=== PATIENT | male | born 1995 | race Hispanic/Latino ===

== ENCOUNTER 2020-10-27 07:41 | Inpatient (IN) | payer OTHER ==
[~2020-10-27] VITALS: Ht 170.2 cm; Wt 70.5 kg
[2020-10-27 08:20] LABS: HEMATOCRIT 48.9 % (42.0-52.0); HEMOGLOBIN 16.5 g/dl (13.5-17.5); MEAN CORPUSCULAR HEMOGLOBIN 30.4 pg (27.0-33.0); MEAN CORPUSCULAR HGB CONC 33.7 g/dl (32.0-36.5); MEAN CORPUSCULAR VOLUME 90.1 fl (80.0-96.0); PLATELET COUNT, AUTOMATED 382 10^3/uL (150-450); RED BLOOD COUNT 5.43 10^6/uL (4.30-6.10); WHITE BLOOD COUNT 9.4 10^3/uL (4.0-10.0)
--- NOTE | 2020-10-27 08:28 | REP ---
INDICATION: trauma COMPARISON: None. TECHNIQUE: AP, lateral, bilateral oblique views right hand. FINDINGS: The osseous structures and joint spaces are intact and normal. There is no evidence for acute fracture or dislocation. Surrounding soft tissues are unremarkable. No subcutaneous emphysema or radiodense foreign body. IMPRESSION: . No acute fracture or dislocation. <Electronically signed by Bret Moreau > 10/27/20 [id number]
[2020-10-27] MEDS: NICOTINE 21MG/24HR 1 EA TRANSDERMAL TD SCH (09:00)
[2020-10-27 09:22] LABS: ACETAMINOPHEN LEVEL < 2.0 UG/ML (10.0-30.0); ALBUMIN 4.2 GM/DL (3.2-5.2); ALT/SGPT 71 U/L (12-78); BILIRUBIN,DIRECT 0.2 MG/DL (0.0-0.2); BILIRUBIN,TOTAL 0.7 MG/DL (0.2-1.0); BLOOD UREA NITROGEN 11 MG/DL (7-18); CALCIUM LEVEL 9.4 MG/DL (8.5-10.1); CARBON DIOXIDE LEVEL 30 MEQ/L (21-32); CHLORIDE LEVEL 106 MEQ/L (98-107); ETHYL ALCOHOL (ETHANOL) < 0.003 % (0.000-0.010); GLOMERULAR FILTRATION RATE > 60.0 (>60); GLUCOSE, FASTING 89 MG/DL (70-100); POTASSIUM SERUM 3.8 MEQ/L (3.5-5.1); SALICYLATE LEVEL < 1.7 MG/DL (5.0-30.0); SODIUM LEVEL 140 MEQ/L (136-145); TOTAL PROTEIN 7.9 GM/DL (6.4-8.2)
[2020-10-27 10:48] LABS: AMPHETAMINES LEVEL URINE NEGATIVE (NEGATIVE); BARBITURATES URINE NEGATIVE (NEGATIVE); BENZODIAZEPINES URINE NEGATIVE (NEGATIVE); CANNABINOIDS URINE NEGATIVE (NEGATIVE); COCAINE METABOLITE URINE NEGATIVE (NEGATIVE); METHADONE URINE NEGATIVE (NEGATIVE); OPIATES URINE NEGATIVE (NEGATIVE); PHENCYCLIDINE URINE NEGATIVE (NEGATIVE)
[2020-10-27] MEDS ORDERED: IBUPROFEN 400MG TAB PO PRN (13:05)
[2020-10-27] MEDS ORDERED: MOM 30ML SUSPENSION UDC PO PRN (13:05)
[2020-10-27] MEDS ORDERED: traZODone 50 MG TAB PO PRN (13:05)
[2020-10-27 15:42] VITALS: BP 129/86
[2020-10-27] MEDS: MAALOX 30 ML SUSP *UDC PO PRN (17:19)
[2020-10-27] MEDS: LORazepam 1 MG TAB PO PRN (21:57)
[2020-10-28 06:43] VITALS: BP 111/68
[2020-10-28] MEDS: NICOTINE 21MG/24HR 1 EA TRANSDERMAL TD SCH (09:00)
--- NOTE | 2020-10-28 10:08 | MHHPEPDOC ---
General Date Of Admission: October 27, 2020 Legal Status: 9.39 Chief Complaint I was crying and was feeling terrible and was thinking about suicide ". History of Present Illness HISTORY OF THE PRESENT ILLNESS: Patient is a 25 -year-old , male, who [has no previous inpatient psychiatric treatment. He has been seeing a counselor at a mental health clinic on the [facility] for the past 6 weeks to 2 increasing de pression. He hasn't been feeling very tired with no energy, poor sleep and appetite, unable to concentrate, but denies any psychotic symptoms. Denies any manic symptoms but was feeling increasingly distressed. Yesterday he WAS more anxious, restless, wanting about the future and crying and went to his mental status unit, but couldn't get any immediate help, so he called the hotline and was brought to the emergency room. He is denying any clear precipitant. Denies any drug or alcohol abuse issues, although admits that he is been worried about his family back in [place] and wanted to be transferred there, but apparently nothing unstated waiting, which could be the underlying stressor. He was not able to contract for safety and didn't feel quite stable enough to go back to his unit and was admitted on 939 status.]. Psychiatric Review of Systems Depression (2 or more weeks): depressed mood, anhedonia, insomnia/hypersomnia, feelings of worthlesness, decreased energy, difficulty concentrating, appetite changes, suicidal thoughts Jessica (4 or more days of): denies Psychosis: denies Anxiety: gen/non-specific anxiety, stressor related anxiety Past Psychiatric History Previous Psychiatric Diagnosis: [Depression]. Previous Psychiatric Admissions: [None]. Suicide Attempts: [, None]. Psychiatric Follow-up: [Was seeing a counselor at mental health unit]. Psychiatric medications: [Not been tried on any medications]. Past Medical History Medical Problems No medical issues Head Injury: No Seizures: No Hospitalizations: No Surgeries: No Family Medical/Psychiatric HX Psychiatric Disorders: Yes (patient reports her father's side aunt had bipolar disorder and one of his older brother has depression) Addiction: No Suicide Attemps/Completions: No Addiction History denies Social History Childhood: [Born in [place], finished high school, uneventful childhood]. Abuse/Trauma:[Denies any]. Current Living Situation: [place] and his family is in [place]]. Education: [High school]. Employment: [Was in 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 Legal: [Denies any]. Marital: [Been 2 years. His has a scoliosis and his habits 1 child 1-year-old living with his .]. Mental Status Examination General Appearance: well groomed, appears stated age Build: average Demeanor: average Eye Contact: average Activity: average Behavior: cooperative, loss of interests, anhedonia, withdrawn Speech: clear, spontaneous, low in volume Mood: depressed, anxious Affect: full, appropriate, congruent, anxious Thought Process: logical/linear Thought Content (Delusions): none reported Thought Content (Other): none reported Thought Content (Aggressive): none reported Perception (Hallucinations): none reported Perception (Other): none reported Cognition (Impairment of): none reported Cognition(Intelligence Est.): average Oriented: Awake, Alert, Oriented times three Insight: fair Judgment: Fair Psychosis: Denies Diagnoses Major depressive disorder, single episode, moderate A-FIB/CHADSVASC A-FIB History Current/History of A-Fib/PAF?: No Current PO Anticoag Therapy: No Age/Risk Factor Scoring CHADSVASC: CHADSVASC Response (Comments) Value Gender Risk Factor Male 0 Hx of CHF No 0 Hx of HTN No 0 Hx of Stroke/TIA/or VTE No 0 Hx of Diabetes No 0 Hx of Vascular Disease No 0 Total 0 Treatment Treatment ordered: NONE Assessment Appears markedly depressed, but not psychotic and denies any active suicidal thoughts. It appears that he is quite anxious about his family. He had a no trial and of antidepressant medication and is willing to try antidepressant medication and willing to cooperate. Initial Treatment Plan 1. Patient was admitted on a [9.39] status. 2. Complete history was obtained. 3. With patients permission, family will be contacted and database will be expanded. 4. Patients medication regimen will be reviewed and changed accordingly. 5. Patient will be provided with protected environment. 6. Patient will be treated with individual, group, and milieu therapies. 7. Patient will receive supportive psych-education. 8. Discharge planning will commence immediately. 9. Outpatient follow-up treatment will be strongly recommended. 10. The initial treatment plan will focus initially on: * Depression. * Risk for suicide. ESTIMATED LENGTH OF STAY: [5]-[7] DAYS. TIME SPENT COUNSELING AND COORDINATING INITIAL CARE: [45] minutes. Tobacco Cessation Screen If Patient is a Smoker Nonsmoker N/A-No Antipsychotics Vital Signs Vital Signs Date Time Temp Pulse Resp B/P (MAP) Pulse Ox O2 Delivery O2 Flow Rate FiO2 10/28/20 06:43 97.6 81 18 111/68 (82) 100 Room Air Laboratory Data 24H Labs Laboratory Tests 2 10/27/20 10:05: Urine Opiates Screen NEGATIVE, Urine Methadone Screen NEGATIVE, Urine Barbiturates Screen NEGATIVE, Urine Phencyclidine Screen NEGATIVE, Urine Amphetamines Screen NEGATIVE, Urine Benzodiazepines Screen NEGATIVE, Urine Cocaine Metabolite Screen NEGATIVE, Urine Cannabinoids Screen NEGATIVE Medications No Active Prescriptions or Reported Meds Allergies Coded Allergies: No Known Allergies (Unverified , 10/27/20) EIL BARBER M.D. October 28, 2020 10:08
[2020-10-28] MEDS: SERTRALINE HCL 50 MG TAB PO SCH (10:09)
--- NOTE | 2020-10-28 13:07 | HPEPDOC ---
[facility] Medical History & Physical Date of Admission October 28, 2020 Date of Service: October 28, 2020 History and Physical CHIEF COMPLAINT: Medical evaluation HISTORY OF PRESENT ILLNESS: Patient admitted to the inpatient mental health unit for suicidal ideations. I am asked to provide a medical assessment of patient admitted to the psychiatric unit. My assessment is limited to medical problems and does not address any psychiatric problems which is deferred to the in-house psychiatrist. Patient has no medical complaints feels well, no complaints at this time. ROS all negative. PAST MEDICAL/SURGICAL HISTORY: Denies any SOCIAL HISTORY: Endorses drinking alcohol socially only on special occasions such as on weekends with friends Endorses smoking e-cigarettes daily Denies illicit drug use FAMILY HISTORY: Reviewed and none contributory to this admission ALLERGIES: Please see below. REVIEW OF SYSTEMS: 10 point review of systems complete all negative otherwise stated in HPI HOME MEDICATIONS: Please see below. PHYSICAL EXAMINATION: Constitutional: Awake and alert, in no apparent distress ENT: Sclera are clear. Mucosa is moist. Respiratory: Lungs CTA bilaterally. No respiratory distress. Cardiovascular: RRR S1 and S2 are normal, no murmur Gastrointestinal: Abdomen is soft, non distended, non tender, BS present. Musculoskeletal: No lower extremity edema. Neurologic: No focal neurological deficit. Mental Status: A&O x3 Skin: Warm, dry LABORATORY DATA: See below. IMAGING: See chart MICROBIOLOGY: Please see below. ASSESSMENT/PLAN Medical evaluation for patient admitted to inpatient mental health unit. Patient is doing well and has no active medical problems. Follow-up with PCP after discharge. Follow-up with recommendations and management from psychiatry. Counseled to quit smoking. A [facility] Vital Signs Vital Signs Date Time Temp Pulse Resp B/P (MAP) Pulse Ox O2 Delivery O2 Flow Rate FiO2 10/28/20 06:43 97.6 81 18 111/68 (82) 100 Room Air Laboratory Data Microbiology Microbiology 10/27/20 Respiratory Virus Panel (PCR) (MARLA) - Final, Complete Home Medications No Active Prescriptions or Reported Meds Allergies Coded Allergies: No Known Allergies (Unverified , 10/27/20) A-FIB/CHADSVASC A-FIB History Current/History of A-Fib/PAF?: No Age/Risk Factor Scoring CHADSVASC: CHADSVASC Response (Comments) Value Gender Risk Factor Male 0 Hx of CHF No 0 Hx of HTN No 0 Hx of Stroke/TIA/or VTE No 0 Hx of Diabetes No 0 Hx of Vascular Disease No 0 Total 0 YFN LOMAS MD October 28, 2020 13:07
[2020-10-28 18:13] VITALS: BP 134/77
[2020-10-28] MEDS: LORazepam 1 MG TAB PO PRN (21:43)
[2020-10-29 06:52] VITALS: BP 132/81
[2020-10-29] MEDS: NICOTINE 21MG/24HR 1 EA TRANSDERMAL TD SCH (08:42)
[2020-10-29] MEDS: SERTRALINE HCL 50 MG TAB PO SCH (08:43)
--- NOTE | 2020-10-29 11:16 | MHIPNPDOC ---
[facility] Progress Note Progress Note DATE OF SERVICE: 10/29/20 , The patient took his Zoloft yesterday and today, and the reports that after his first dose, he felt somewhat tired and a little drowsy. He also had the increased anxiety at that times and apparently used to Ativan when necessary. He is not feeling any differently yet and stated feeling quite depressed, anxious, and feeling hopeless, but denies any active suicidal thoughts and is willing to cooperate with the treatment to get better. HISTORY: . VITAL SIGNS: See below. NEW TEST RESULTS: . CURRENT MEDICATIONS: See below. MENTAL STATUS EXAMINATION: Patient is a 25-year old male, who is , cooperative and in no acute distress. Speech: Is rational, coherent . Language skills are good. Thought processes including: Organized . Thought content: , No psychotic symptoms and no active suicidal thoughts. Abstract reasoning, and computation: Good. Description of associations: Organized. Description of abnormal or psychotic thoughts: Non-. Judgment: , Fair. Insight: fair.. Orientation: , Well oriented. Recent and remote memory: Good. Attention span and concentration: Good. Language: . Fund of knowledge: [Average. Mood: , Anxious, depressed. Affect: , Appropriate]. DIAGNOSES: 1. . Major depression 2. . 3. . ASSESSMENT:, No significant change, but cooperating with the medicine MANAGEMENT PLAN: [Continuing the current medicine and supportive therapy]. TIME SPENT: [20] minutes. Vital Signs Vital Signs Date Time Temp Pulse Resp B/P (MAP) Pulse Ox O2 Delivery O2 Flow Rate FiO2 10/29/20 06:52 97.9 78 18 132/81 (98) 98 Room Air Current Medications Current Medications Medications (Trade) Dose Ordered Sig/Kevin Route PRN Reason Start Time Stop Time Status Last Admin Dose Admin Al Hydrox/Mg Hydrox/Simethicone (Mylanta) 30 ml Q4HP PRN PO HEARTBURN/INDIGESTION 10/27/20 13:05 10/27/20 17:19 Home Med (Med Rec Complete!) ASDIRECTED XX 10/27/20 11:55 10/27/20 11:57 DC Ibuprofen (Advil) 400 mg Q6HP PRN PO PAIN 10/27/20 13:05 10/27/20 20:26 Lorazepam (Ativan) 1 mg Q6HP PRN PO ANXIETY 10/27/20 21:35 10/28/20 21:43 Magnesium Hydroxide (Milk Of Magnesia) 30 ml DAILYPRN PRN PO CONSTIPATION 10/27/20 13:05 Nicotine (Nicoderm Cq 21mg) 1 patch DAILY TD 10/27/20 09:00 10/29/20 08:42 Sertraline HCl (Zoloft) 50 mg QAM PO 10/28/20 09:00 10/29/20 08:43 Trazodone HCl (Desyrel) 50 mg QHSP PRN PO INSOMNIA 10/27/20 13:05 Allergies Coded Allergies: No Known Allergies (Unverified , 10/27/20) ELI BARBER M.D. October 29, 2020 11:16
[2020-10-29] MEDS: hydrOXYzine 25 MG TAB PO PRN ×2 (11:46→23:07)
[2020-10-29 16:16] VITALS: BP 119/71
[2020-10-30 06:22] VITALS: BP 122/59
[2020-10-30] MEDS: SERTRALINE HCL 50 MG TAB PO SCH (09:01)
[2020-10-30] MEDS: NICOTINE 21MG/24HR 1 EA TRANSDERMAL TD SCH (09:02)
--- NOTE | 2020-10-30 11:43 | MHIPNPDOC ---
[facility] Progress Note Progress Note DATE OF SERVICE: 10/30/20 The patient reports that he was having marked difficulty yesterday with the sleep and anxiety control. He states that he was feeling constantly restless and uneasy and anxious and later at night and couldn't fall asleep even with the 50 mg of trazodone. He reports Atarax was not helping his anxiety and wasn't getting any relief. Patient does not have any history of the alcohol. Rule out drug abuse and is not particularly med seeking, so we will try Ativan as needed for the next 2-3 days. I would also give him trazodone increased to 100 mg because he reports some partial relief with 50mg. He understands that his depression is due to his ambivalence about his [employer] career, but apparently has decided to leave the service which adds to his anxiety. He is denying any psychotic symptoms and denies any suicidal thoughts. HISTORY: . VITAL SIGNS: See below. NEW TEST RESULTS: . CURRENT MEDICATIONS: See below. MENTAL STATUS EXAMINATION: Patient is a 25-year old male, who is moderately anxious and preoccupied. Speech: Is rational, relevant. Language skills are good. Thought processes including: , Organized. Thought content: Denies any psychosis. Denies any active suicidal thoughts. Abstract reasoning, and computation: , Fair. Description of associations: , Organized. Description of abnormal or psychotic thoughts: None. Judgment: , Fair. Insight: fair. Orientation: , Well-oriented. Recent and remote memory: Good. Attention span and concentration: [Good]. Language: . Fund of knowledge: [Average]. Mood: [, Depressed, anxious]. Affect: [, Appropriate]. DIAGNOSES: 1. . Depressive disorder, NOS 2. . 3. . ASSESSMENT:[Remains anxious and depressed, but not acutely suicidal] MANAGEMENT PLAN: [, Try to stabilize with Zoloft and trazodone and supportive therapy]. TIME SPENT: 20 minutes. Vital Signs Vital Signs Date Time Temp Pulse Resp B/P (MAP) Pulse Ox O2 Delivery O2 Flow Rate FiO2 10/30/20 06:22 97.8 60 16 122/59 (80) 98 Room Air Current Medications Current Medications Medications (Trade) Dose Ordered Sig/Kevin Route PRN Reason Start Time Stop Time Status Last Admin Dose Admin Al Hydrox/Mg Hydrox/Simethicone (Mylanta) 30 ml Q4HP PRN PO HEARTBURN/INDIGESTION 10/27/20 13:05 10/27/20 17:19 Home Med (Med Rec Complete!) ASDIRECTED XX 10/27/20 11:55 10/27/20 11:57 DC Hydroxyzine HCl (Atarax) 25 mg Q6HP PRN PO ANXIETY 10/29/20 11:10 10/29/20 23:07 Ibuprofen (Advil) 400 mg Q6HP PRN PO PAIN 10/27/20 13:05 10/27/20 20:26 Loperamide HCl (Imodium) 2 mg ASDIRECTED PRN PO DIARRHEA 10/29/20 18:20 Lorazepam (Ativan) 1 mg Q6HP PRN PO ANXIETY 10/27/20 21:35 10/29/20 11:13 DC 10/28/20 21:43 Magnesium Hydroxide (Milk Of Magnesia) 30 ml DAILYPRN PRN PO CONSTIPATION 10/27/20 13:05 Nicotine (Nicoderm Cq 21mg) 1 patch DAILY TD 10/27/20 09:00 10/30/20 09:02 Sertraline HCl (Zoloft) 50 mg QAM PO 10/28/20 09:00 10/30/20 09:01 Trazodone HCl (Desyrel) 50 mg QHSP PRN PO INSOMNIA 10/27/20 13:05 10/29/20 20:57 Allergies Coded Allergies: No Known Allergies (Unverified , 10/27/20) ELI BARBER M.D. October 30, 2020 11:43
[2020-10-30] MEDS: LORazepam 1 MG TAB PO PRN (13:05)
[2020-10-30 18:30] VITALS: BP 148/81
[2020-10-30] MEDS ORDERED: traZODone 100 MG TAB PO SCH (21:00)
[2020-10-31] MEDS: LORazepam 1 MG TAB PO PRN (00:11)
[2020-10-31 06:00] VITALS: BP 117/56
[2020-10-31] MEDS: SERTRALINE HCL 50 MG TAB PO SCH (08:29)
[2020-10-31] MEDS: NICOTINE 21MG/24HR 1 EA TRANSDERMAL TD SCH (08:29)
[2020-10-31 16:58] VITALS: BP 123/77
[2020-10-31] MEDS: traZODone 50 MG TAB PO PRN (21:44)
[2020-11-01 07:00] VITALS: BP 119/56
[2020-11-01] MEDS: NICOTINE 21MG/24HR 1 EA TRANSDERMAL TD SCH (08:19)
[2020-11-01] MEDS: SERTRALINE HCL 50 MG TAB PO SCH (08:20)
--- NOTE | 2020-11-01 12:48 | MHIPN ---
[facility] PROGRESS NOTE DATE: 10/31/2020 The patient today states that he is "better," but then he says that he is tired. He says he is better because he is less anxious today than he was yesterday. He took trazodone and still did not sleep, and so he requested Ativan as needed that he had ordered for him and then he got some sleep. MENTAL STATUS EXAMINATION: The patient is alert and oriented times three. Eye contact fair. Psychomotor activity is decreased. There is no formal thought disorder noted. He says his mood is "better." Affect is flat. He is denying suicidal or homicidal ideations. Concentration is fair. Memory intact. Insight and judgment fair. DIAGNOSIS: Major depressive disorder. TREATMENT PLAN: At this point, we will continue to monitor the patient for continued elevation and stabilization of his mood.
[2020-11-01] MEDS: MAALOX 30 ML SUSP *UDC PO PRN ×2 (14:39→20:57)
[2020-11-01] MEDS: LOPERAMIDE 2 MG CAPLET PO PRN (17:02)
[2020-11-01 18:18] VITALS: BP 157/80
[2020-11-01] MEDS: traZODone 50 MG TAB PO PRN (21:31)
[2020-11-02 06:58] VITALS: BP 106/56
[2020-11-02] MEDS: SERTRALINE HCL 50 MG TAB PO SCH (08:30)
[2020-11-02] MEDS: NICOTINE 21MG/24HR 1 EA TRANSDERMAL TD SCH (08:31)
--- NOTE | 2020-11-02 12:16 | MHIPNPDOC ---
[facility] Progress Note Progress Note DATE OF SERVICE: 11/02/20 Patient complains that he is still feeling a little tired and didn't sleep very well, but overall he feels a little better and not as depressed and denies any suicidal thoughts. He is denying any side effects from his medicine and is willing to have it increased 200 mg. He is not as anxious and is earlier more productive and not as blunted. HISTORY: . VITAL SIGNS: See below. NEW TEST RESULTS: . CURRENT MEDICATIONS: See below. MENTAL STATUS EXAMINATION: Patient is a 25-year old male, who is in no acute distress. Speech: Is rational. Language skills are good]. Thought processes including: , Organized. Thought content: Denies any hallucination and denies any suicidal thoughts. Abstract reasoning, and computation: Good. Description of associations: , Organized. Description of abnormal or psychotic thoughts: Non-. Judgment: , Fair. Insight: fair.. Orientation: , Well oriented. Recent and remote memory: Good. Attention span and concentration: Good. Language: . Fund of knowledge: Average]. Mood: [, Not as depressed]. Affect: Appropriate . DIAGNOSES: 1. . Major depression 2. . 3. . ASSESSMENT: Slight improvement and no suicidal thoughts MANAGEMENT PLAN: [Increase in Zoloft 200 mg]. TIME SPENT: [20] minutes. Vital Signs Vital Signs Date Time Temp Pulse Resp B/P (MAP) Pulse Ox O2 Delivery O2 Flow Rate FiO2 11/02/20 06:58 98.0 71 20 106/56 (73) 96 Room Air Current Medications Current Medications Medications (Trade) Dose Ordered Sig/Kevin Route PRN Reason Start Time Stop Time Status Last Admin Dose Admin Al Hydrox/Mg Hydrox/Simethicone (Mylanta) 30 ml Q4HP PRN PO HEARTBURN/INDIGESTION 10/27/20 13:05 11/01/20 20:57 Home Med (Med Rec Complete!) ASDIRECTED XX 10/27/20 11:55 10/27/20 11:57 DC Hydroxyzine HCl (Atarax) 25 mg Q6HP PRN PO ANXIETY 10/29/20 11:10 10/30/20 11:38 DC 10/29/20 23:07 Ibuprofen (Advil) 400 mg Q6HP PRN PO PAIN 10/27/20 13:05 10/27/20 20:26 Loperamide HCl (Imodium) 2 mg ASDIRECTED PRN PO DIARRHEA 10/29/20 18:20 11/01/20 17:02 Lorazepam (Ativan) 1 mg Q6HP PRN PO ANXIETY 10/27/20 21:35 10/29/20 11:13 DC 10/28/20 21:43 Lorazepam (Ativan) 1 mg Q8HP PRN PO ANXIETY 10/30/20 11:35 10/31/20 00:11 Magnesium Hydroxide (Milk Of Magnesia) 30 ml DAILYPRN PRN PO CONSTIPATION 10/27/20 13:05 Nicotine (Nicoderm Cq 21mg) 1 patch DAILY TD 10/27/20 09:00 10/30/20 09:02 Sertraline HCl (Zoloft) 50 mg QAM PO 10/28/20 09:00 11/02/20 08:30 Trazodone HCl (Desyrel) 50 mg QHSP PRN PO INSOMNIA 10/27/20 13:05 10/30/20 11:38 DC 10/29/20 20:57 Trazodone HCl (Desyrel) 100 mg QHS PO 10/30/20 21:00 10/31/20 10:04 DC 10/30/20 22:36 Trazodone HCl (Desyrel) 150 mg QHSP PRN PO INSOMNIA 10/31/20 10:05 11/01/20 21:31 Allergies Coded Allergies: No Known Allergies (Unverified , 10/27/20) ELI BARBER M.D. November 02, 2020 12:16
[2020-11-02] MEDS ORDERED: LOPERAMIDE 2 MG CAPLET PO ONE (13:05)
[2020-11-02 18:54] VITALS: BP 113/70
[2020-11-02] MEDS: traZODone 50 MG TAB PO PRN (22:22)
[2020-11-03 06:31] VITALS: BP 130/60
[2020-11-03] MEDS: SERTRALINE 100 MG TAB PO SCH (08:52)
--- NOTE | 2020-11-03 12:16 | MHIPNPDOC ---
[facility] Progress Note Progress Note DATE OF SERVICE: 11/03/20 The patient cooperated and tolerated the increased Zoloft without any side effects. He stated that she slept "pretty good yesterday and is feeling not as tired and overall feeling a little bit more hopeful and has more positive thinking. He does appear more animated, smiling a little bit more and strongly denies any suicidal thoughts. He is been token to his family in [place] and getting the support and strongly denies any more suicidal thoughts. He has not been using. He is a Ativan 1 nicotine gum plan overall feeling less anxious and more positive. HISTORY: . VITAL SIGNS: See below. NEW TEST RESULTS: . CURRENT MEDICATIONS: See below. MENTAL STATUS EXAMINATION: Patient is a 25 -year old male, who is , pleasant and cooperative. Speech: Is good, productive, . Language skills are good. Thought processes including: , Relevant, coherent. Thought content: Denies any suicidal thoughts. Abstract reasoning, and computation: Good. Description of associations: , Organized. Description of abnormal or psychotic thoughts: None. Judgment: , Fair. Insight: [fair. . Orientation: , Well-oriented, good. Recent and remote memory: Good. Attention span and concentration: Fair. Language: . Fund of knowledge: Average. Mood: , Not feeling as depressed. Affect: More animated and appropriate. DIAGNOSES: 1. . Depressive disorder 2. . 3. . ASSESSMENT: Showing improvement MANAGEMENT PLAN: . Continue with the current medicines and possible discharge tomorrow, 20 minutes. Vital Signs Vital Signs Date Time Temp Pulse Resp B/P (MAP) Pulse Ox O2 Delivery O2 Flow Rate FiO2 11/03/20 06:31 99.4 61 16 130/60 (83) 96 Room Air Current Medications Current Medications Medications (Trade) Dose Ordered Sig/Kevin Route PRN Reason Start Time Stop Time Status Last Admin Dose Admin Al Hydrox/Mg Hydrox/Simethicone (Mylanta) 30 ml Q4HP PRN PO HEARTBURN/INDIGESTION 10/27/20 13:05 11/01/20 20:57 Home Med (Med Rec Complete!) ASDIRECTED XX 10/27/20 11:55 10/27/20 11:57 DC Hydroxyzine HCl (Atarax) 25 mg Q6HP PRN PO ANXIETY 10/29/20 11:10 10/30/20 11:38 DC 10/29/20 23:07 Ibuprofen (Advil) 400 mg Q6HP PRN PO PAIN 10/27/20 13:05 10/27/20 20:26 Loperamide HCl (Imodium) 2 mg ASDIRECTED PRN PO DIARRHEA 10/29/20 18:20 11/01/20 17:02 Lorazepam (Ativan) 1 mg Q6HP PRN PO ANXIETY 10/27/20 21:35 10/29/20 11:13 DC 10/28/20 21:43 Lorazepam (Ativan) 1 mg Q8HP PRN PO ANXIETY 10/30/20 11:35 10/31/20 00:11 Magnesium Hydroxide (Milk Of Magnesia) 30 ml DAILYPRN PRN PO CONSTIPATION 10/27/20 13:05 Nicotine (Nicoderm Cq 21mg) 1 patch DAILY TD 10/27/20 09:00 11/02/20 15:20 DC 10/30/20 09:02 Sertraline HCl (Zoloft) 50 mg QAM PO 10/28/20 09:00 11/02/20 12:14 DC 11/02/20 08:30 Sertraline HCl (Zoloft) 100 mg QAM PO 11/03/20 09:00 11/03/20 08:52 Trazodone HCl (Desyrel) 50 mg QHSP PRN PO INSOMNIA 10/27/20 13:05 10/30/20 11:38 DC 10/29/20 20:57 Trazodone HCl (Desyrel) 100 mg QHS PO 10/30/20 21:00 10/31/20 10:04 DC 10/30/20 22:36 Trazodone HCl (Desyrel) 150 mg QHSP PRN PO INSOMNIA 10/31/20 10:05 11/02/20 22:22 Allergies Coded Allergies: No Known Allergies (Unverified , 10/27/20) ELI BARBER M.D. November 03, 2020 12:16
[2020-11-03] MEDS: MAALOX 30 ML SUSP *UDC PO PRN ×2 (15:03→19:53)
[2020-11-03 16:15] VITALS: BP 140/89
[2020-11-03] MEDS: LOPERAMIDE 2 MG CAPLET PO PRN (17:18)
[2020-11-03] MEDS: traZODone 50 MG TAB PO PRN (23:11)
[2020-11-04 06:51] VITALS: BP 112/54
[2020-11-04] MEDS: SERTRALINE 100 MG TAB PO SCH (08:36)
[2020-11-04] MEDS ORDERED: ZOLO100T PO (09:30)
[2020-11-04] MEDS ORDERED: TRAZ-252 PO (10:30)
--- NOTE | 2020-11-04 11:59 | MHDSPDOC ---
[facility] Discharge Summary Discharge Summary DATE OF ADMISSION: October 27, 2020 at 13:03 DATE OF DISCHARGE: November 04, 2020 at 10:36 DISCHARGE DIAGNOSES: 1. . 2. . REASON FOR ADMISSION: CONSULTANTS INVOLVED: TREATMENT AND PROGRESS ON THE UNIT : . HOSPITAL COURSE: DISCHARGE ASSESSMENT: MENTAL STATUS EXAMINATION ON DISCHARGE: Patient is a -year old male, who is . Speech is . Language skills are . Thought processes including: . Thought content: . Abstract reasoning, and computation: . Description of associations: . Description of abnormal or psychotic thoughts: . Judgment: . Insight: . Orientation to . Recent and remote memory: . Attention span and concentration: . Language: . Fund of knowledge: . Mood: . Affect: . MEDICATIONS ON DISCHARGE: - for . - for . - for . PLAN/FOLLOWUP ARRANGEMENTS: . The amount of time spent in the coordination of care for this patient was approximately minutes. ETOH/Disorder Med Rx ETOH/DRUG DISORDER RX: N/A Vital Signs/I&Os Vital Signs Date Time Temp Pulse Resp B/P (MAP) Pulse Ox O2 Delivery O2 Flow Rate FiO2 11/04/20 06:51 97.9 71 16 112/54 (73) 98 Room Air Laboratory Data Microbiology Microbiology 10/27/20 Respiratory Virus Panel (PCR) ([facility]) - Final, Complete Medications Scheduled Sertraline Hcl (Zoloft) 100 Mg Tablet, 100 MG PO QAM for depression for 7 Days, #7 Scheduled PRN Trazodone HCl (Trazodone HCl) 50 Mg Tablet, 150 MG PO QHSP PRN for INSOMNIA for 7 Days, #7 Allergies Coded Allergies: No Known Allergies (Unverified , 10/27/20) ELI BARBER M.D. November 04, 2020 11:59
--- NOTE | 2020-11-04 12:05 | MHDSPDOC ---
[facility] Discharge Summary Discharge Summary DATE OF ADMISSION: October 27, 2020 at 13:03 DATE OF DISCHARGE: November 04, 2020 at 10:36 DISCHARGE DIAGNOSES: 1. . Major depression, single episode, moderate 2. . REASON FOR ADMISSION: Patient wasn't experiencing increasing depressive symptoms with vague suicidal thoughts. He has no prior history, but it was reporting increasing anxiety, poor sleep, feeling tired and having vague suicidal thoughts CONSULTANTS INVOLVED: None TREATMENT AND PROGRESS ON THE UNIT : [Patient was seen for supportive therapy and started on Zoloft 50 mg daily, increase to 100 mg daily and given trazodone for sleep and Ativan for anxiety as needed.. HOSPITAL COURSE: Patient showed gradual but significant improvement. His anxiety is improved and his Ativan was discontinued and his sleep is much improved and is becoming much less anxious, feeling more hopeful, positive and denies any suicidal thoughts at all and feeling safe to return to the surface. DISCHARGE ASSESSMENT: Much improved and stable and suicidal MENTAL STATUS EXAMINATION ON DISCHARGE: Patient is a 25-year old male, who is in no acute distress. Speech is , productive. Language skills are good. Thought processes including: , Relevant, coherent. Thought content: More suicidal thoughts. Abstract reasoning, and computation: Good. Description of associations: Firm. Description of abnormal or psychotic thoughts: None. Judgment: Good. Good. Insight: Good. Orientation to , well oriented. Recent and remote memory: Good. Good. Attention span and concentration: . Language: . Fund of knowledge: Average. Mood: Euthymic. Affect: Bright, appropriate. MEDICATIONS ON DISCHARGE: - [Zoloft 100 mg daily for 7 days with 3 refills. - Trazodone 150 mg at bedtime for 7 days with 3 refills. - for . PLAN/FOLLOWUP ARRANGEMENTS: As arranged by the technical planner. The amount of time spent in the coordination of care for this patient was approximately 40 minutes. ETOH/Disorder Med Rx ETOH/DRUG DISORDER RX: N/A Vital Signs/I&Os Vital Signs Date Time Temp Pulse Resp B/P (MAP) Pulse Ox O2 Delivery O2 Flow Rate FiO2 11/04/20 06:51 97.9 71 16 112/54 (73) 98 Room Air Laboratory Data Microbiology Microbiology 10/27/20 Respiratory Virus Panel (PCR) ([facility]) - Final, Complete Medications Scheduled Sertraline Hcl (Zoloft) 100 Mg Tablet, 100 MG PO QAM for depression for 7 Days, #7 Scheduled PRN Trazodone HCl (Trazodone HCl) 50 Mg Tablet, 150 MG PO QHSP PRN for INSOMNIA for 7 Days, #7 Allergies Coded Allergies: No Known Allergies (Unverified , 10/27/20) ELI BARBER M.D. November 04, 2020 12:05
== END 2020-11-04 10:36 | disposition home or self-care (01) | DRG 885 ==
LOC: M ED 07:41 → M ED INP 13:03 → M PSY 15:39
PROVIDERS: ADMIT Psychiatry & Neurology Psychiatry; ATTEND Psychiatry & Neurology Psychiatry
DX: F32.1 Major depressive disorder, single episode, moderate (principal); R45.851 Suicidal ideations; F17.290 Nicotine dependence, other tobacco product, uncomplicated

== ENCOUNTER 2020-11-08 22:11 | Emergency (ER) | payer OTHER ==
[~2020-11-08] VITALS: Ht 170.2 cm; Wt 67.0 kg
[~2020-11-08 22:11] MED LIST: TRAZ-252 PO; ZOLO100T PO
[2020-11-08] MEDS ORDERED: OMEP10CASR PO (22:27)
[2020-11-08] MEDS ORDERED: KETOROLAC 30 MG/ML 1ML VIAL IV ONE (22:55)
[2020-11-08] MEDS ORDERED: NS 1,000 ML IV ONE (22:55)
[2020-11-08] MEDS ORDERED: METOCLOPRAMIDE INJ 10MG/2ML VIAL (J2765 PER 1) IV ONE (22:55)
[2020-11-08] MEDS ORDERED: diphenhydrAMINE 50MG/ML VIAL (J1200) IV ONE (22:55)
--- NOTE | 2020-11-08 23:08 | REPVR ---
PROCEDURE INFORMATION: Exam: CT Head Without Contrast Exam date and time: 11/08/2020 10:53 PM Age: 25 years old Clinical indication: Other: Headache TECHNIQUE: Imaging protocol: Computed tomography of the head without contrast. Radiation optimization: All CT scans at this facility use at least one of these dose optimization techniques: automated exposure control; mA and/or kV adjustment per patient size (includes targeted exams where dose is matched to clinical indication); or iterative reconstruction. COMPARISON: No relevant prior studies available. FINDINGS: Brain: Normal. No hemorrhage. Unremarkable white matter. No mass effect. Cerebral ventricles: No ventriculomegaly. Paranasal sinuses: Visualized sinuses are unremarkable. No fluid levels. Mastoid air cells: Visualized mastoid air cells are well aerated. Bones/joints: Unremarkable. No acute fracture. Soft tissues: Unremarkable. IMPRESSION: Negative noncontrast head CT. Electronically signed by: Keenan Antoine On 11/08/2020 23:07:43 PM
[2020-11-08 23:25] LABS: BASO # 0.1 10^3/uL (0.0-0.2); BASO % 0.5 % (0.0-1.0); EOS # 0.2 10^3/uL (0.0-0.5); EOS % 1.6 % (0.0-3.0); HEMATOCRIT 45.8 % (42.0-52.0); HEMOGLOBIN 15.5 g/dl (13.5-17.5); LYMPH # 2.2 10^3/uL (1.5-5.0); LYMPH % 22.2 % (24.0-44.0); MEAN CORPUSCULAR HEMOGLOBIN 29.9 pg (27.0-33.0); MEAN CORPUSCULAR HGB CONC 33.8 g/dl (32.0-36.5); MEAN CORPUSCULAR VOLUME 88.4 fl (80.0-96.0); MONO # 0.8 10^3/uL (0.0-0.8); MONO % 7.8 % (2.0-8.0); NEUTROPHILS # 6.8 10^3/uL (1.5-8.5); NEUTROPHILS % 67.6 % (36.0-66.0); PLATELET COUNT, AUTOMATED 344 10^3/uL (150-450); RED BLOOD COUNT 5.18 10^6/uL (4.30-6.10); WHITE BLOOD COUNT 10.1 10^3/uL (4.0-10.0)
[2020-11-08 23:56] LABS: BLOOD UREA NITROGEN 10 MG/DL (7-18); CALCIUM LEVEL 8.7 MG/DL (8.5-10.1); CARBON DIOXIDE LEVEL 28 MEQ/L (21-32); CHLORIDE LEVEL 106 MEQ/L (98-107); CK-MB VALUE MASS < 1.0 NG/ML (<3.6); CPK CREATINE PHOSPHOKINASE 60 U/L (39-308); CREATININE FOR GFR 0.86 MG/DL (0.70-1.30); GLOMERULAR FILTRATION RATE > 60.0 (>60); GLUCOSE, FASTING 91 MG/DL (70-100); MB/CK RELATIVE INDEX 1.67 (< OR =4); POTASSIUM SERUM 3.8 MEQ/L (3.5-5.1); SODIUM LEVEL 141 MEQ/L (136-145); TROPONIN I < 0.02 NG/ML (< 0.10)
[2020-11-09 03:00] VITALS: BP 137/60
--- NOTE | 2020-11-09 09:35 | ECGEPIP ---
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
== END 2020-11-09 03:10 | disposition home or self-care (01) ==
LOC: M ED 22:11
DX: G43.809 Other migraine, not intractable, without status migrainosus (principal); G47.00 Insomnia, unspecified; F41.1 Generalized anxiety disorder; Z79.899 Other long term (current) drug therapy
CPT/HCPCS: 70450; 80048; 82550; 82553; 84484; 85025; 93005; 93041; 94760; 96361; 96374; 96375; 99285; J1200; J1885; J2765

== ENCOUNTER 2022-03-03 10:27 | Emergency (ER) | payer OTHER ==
[~2022-03-03] VITALS: Ht 175.3 cm; Wt 71.5 kg
[~2022-03-03 10:27] MED LIST changes: +OMEP10CASR PO
[2022-03-03 10:29] VITALS: BP 129/80
[2022-03-03 12:20] LABS: BASO # 0.1 10^3/uL (0.0-0.2); BASO % 0.6 % (0.0-1.0); EOS # 0.1 10^3/uL (0.0-0.5); EOS % 0.9 % (0.0-3.0); HEMATOCRIT 48.3 % (42.0-52.0); HEMOGLOBIN 16.4 g/dl (13.5-17.5); LYMPH % 23.9 % (24.0-44.0); MEAN CORPUSCULAR HEMOGLOBIN 29.7 pg (27.0-33.0); MEAN CORPUSCULAR VOLUME 87.3 fl (80.0-96.0); MONO # 0.7 10^3/uL (0.0-0.8); NEUTROPHILS # 5.7 10^3/uL (1.5-8.5); NEUTROPHILS % 66.4 % (36.0-66.0); PLATELET COUNT, AUTOMATED 377 10^3/uL (150-450); RED BLOOD COUNT 5.53 10^6/uL (4.30-6.10); WHITE BLOOD COUNT 8.6 10^3/uL (4.0-10.0)
[2022-03-03 12:54] LABS: ALBUMIN 4.3 GM/DL (3.2-5.2); ALT/SGPT 43 U/L (12-78); BILIRUBIN,DIRECT < 0.1 MG/DL (0.0-0.2); BILIRUBIN,TOTAL 0.3 MG/DL (0.2-1.0); BLOOD UREA NITROGEN 10 MG/DL (7-18); CALCIUM LEVEL 9.5 MG/DL (8.5-10.1); CARBON DIOXIDE LEVEL 28 MEQ/L (21-32); CHLORIDE LEVEL 103 MEQ/L (98-107); CREATININE FOR GFR 0.75 MG/DL (0.70-1.30); GLOMERULAR FILTRATION RATE > 60.0 (>60); GLUCOSE, FASTING 96 MG/DL (70-100); LIPASE 126 U/L (73-393); POTASSIUM SERUM 3.8 MEQ/L (3.5-5.1); SODIUM LEVEL 135 MEQ/L (136-145); TOTAL PROTEIN 8.2 GM/DL (6.4-8.2)
[2022-03-03 13:20] LABS: GC DNA AMPLIFICATION NEGATIVE (NEGATIVE)
[2022-03-03] MEDS ORDERED: DOXY-443 PO (13:26)
== END 2022-03-03 13:34 | disposition home or self-care (01) ==
LOC: M ED 10:27
DX: A56.8 Sexually transmitted chlamydial infection of other sites (principal); F90.9 Attention-deficit hyperactivity disorder, unspecified type; F32.A Depression, unspecified; F41.9 Anxiety disorder, unspecified; G47.00 Insomnia, unspecified; Z91.011 Allergy to milk products; Z79.899 Other long term (current) drug therapy

== ENCOUNTER 2022-08-31 16:33 | Emergency (ER) | payer OTHER ==
[~2022-08-31] VITALS: Ht 175.3 cm; Wt 70.0 kg
[2022-08-31 16:33] VITALS: BP 135/78
[~2022-08-31 16:33] MED LIST changes: +DOXY-443 PO
[2022-08-31] MEDS ORDERED: ADDE15CA3 PO (16:40)
== END 2022-08-31 17:22 | disposition home or self-care (01) ==
LOC: M ED 16:33
DX: Z01.30 Encounter for examination of blood pressure without abnormal findings (principal); K21.9 Gastro-esophageal reflux disease without esophagitis; F41.9 Anxiety disorder, unspecified; F32.A Depression, unspecified; G47.00 Insomnia, unspecified; E73.9 Lactose intolerance, unspecified; Z79.899 Other long term (current) drug therapy

== ENCOUNTER 2022-09-30 11:51 | Emergency (ER) | payer OTHER ==
[~2022-09-30] VITALS: Ht 170.2 cm; Wt 69.8 kg
[~2022-09-30 11:51] MED LIST changes: +ADDE15CA3 PO
[2022-09-30 11:52] VITALS: BP 139/93
[2022-09-30] MEDS ORDERED: MELA5CAP2 PO (12:07)
[2022-09-30] MEDS ORDERED: ATOM60CA (12:07)
[2022-09-30 13:02] LABS: BASO # 0.1 10^3/uL (0.0-0.2); BASO % 0.6 % (0.0-1.0); EOS # 0.1 10^3/uL (0.0-0.5); EOS % 0.6 % (0.0-3.0); HEMOGLOBIN 16.3 g/dl (13.5-17.5); LYMPH # 1.3 10^3/uL (1.5-5.0); LYMPH % 12.6 % (24.0-44.0); MEAN CORPUSCULAR HEMOGLOBIN 29.8 pg (27.0-33.0); MEAN CORPUSCULAR HGB CONC 34.7 g/dl (32.0-36.5); MEAN CORPUSCULAR VOLUME 85.9 fl (80.0-96.0); MONO # 0.6 10^3/uL (0.0-0.8); MONO % 5.2 % (2.0-8.0); NEUTROPHILS # 8.6 10^3/uL (1.5-8.5); NEUTROPHILS % 80.7 % (36.0-66.0); PLATELET COUNT, AUTOMATED 366 10^3/uL (150-450); RED BLOOD COUNT 5.47 10^6/uL (4.30-6.10); WHITE BLOOD COUNT 10.6 10^3/uL (4.0-10.0)
[2022-09-30 13:32] LABS: ALBUMIN 4.3 G/DL (3.2-5.2); BILIRUBIN,DIRECT 0.1 MG/DL (<0.4); BILIRUBIN,TOTAL 0.4 MG/DL (0.3-1.2); TOTAL PROTEIN 7.6 G/DL (5.7-8.2)
[2022-09-30] MEDS ORDERED: GI COCKTAIL 50ML BTL(HYOSCYAMINE/MAALOX/LIDOCAINE VISCOUS)(1:3:1) PO ONE (14:30)
[2022-09-30] MEDS ORDERED: SUCRALFATE 1 GM TAB PO ONE (14:30)
[2022-09-30] MEDS ORDERED: KETOROLAC 30 MG/ML 1ML VIAL IV ONE (14:30)
[2022-09-30] MEDS ORDERED: NS 1,000 ML IV ONE (14:30)
[2022-09-30] MEDS ORDERED: ISOVUE-370 76% 100ML VIAL As Ordered ONE (14:31)
[2022-09-30] MEDS ORDERED: OMEP-404 PO (15:59)
[2022-09-30] MEDS ORDERED: CARA1TAB6 PO (15:59)
== END 2022-09-30 16:12 | disposition home or self-care (01) ==
LOC: M ED 11:51
DX: Q33.2 Sequestration of lung (principal); K20.90 Esophagitis, unspecified without bleeding; K21.9 Gastro-esophageal reflux disease without esophagitis; E73.9 Lactose intolerance, unspecified; Z79.899 Other long term (current) drug therapy
CPT/HCPCS: 74177; 80047; 80076; 83690; 85025; 96374; 99284; J1885; Q9967